=== PATIENT | female | born 1995 | race African-American/Black ===

== ENCOUNTER 2021-09-25 21:45 | Emergency (ER) | payer BC ==
[2021-09-25] MEDS ORDERED: ACETAMINOPHEN 500 MG TAB ONE (23:32)
[2021-09-25 23:39] LABS: SARS-COV-2 RT PCR POSITIVE (NEGATIVE)
[2021-09-26] MEDS ORDERED: NA CHLORIDE 0.9% 250 ML ONE (00:38)
[2021-09-26] MEDS ORDERED: CASIRIVIMAB/IMDEVIMAB 10 ML VIAL ONE (00:38)
[2021-09-26] MEDS ORDERED: NA CHLORIDE 0.9% 100 ML ONE (00:38)
[2021-09-26 02:03] LABS: Absolute Lymphocytes (CBC) 1.7 K/uL (0.7-4.9); Basophils % 0.5 % (0-1.3); Hematocrit 37.9 % (36.0-45.0); Lymphocytes % 38.9 % (15.3-44.8); MPV 8.5 fL (7.6-11.3); RBC Red Blood Cell Count 4.38 M/uL (3.86-4.86)
[2021-09-26 02:20] LABS: ALT/SGPT 36 U/L (12-78); AST/SGOT 30 U/L (15-37); Albumin 3.1 g/dL (3.4-5.0); Alkaline Phosphatase 59 U/L (45-117); BUN Blood Urea Nitrogen 11 mg/dL (7-18); Bicarbonate 27 mmol/L (21-32); Bilirubin Direct < 0.1 mg/dL (0-0.2); Bilirubin Total 0.3 mg/dL (0.2-1.0); Glucose Level 98 mg/dL (74-106); Potassium 3.2 mmol/L (3.5-5.1); Protein, Total 7.2 g/dL (6.4-8.2); Sodium Level 142 mmol/L (136-145)
[2021-09-26] MEDS ORDERED: POTASSIUM 25 MEQ EFFERV TAB ONE (02:35)
--- NOTE | 2021-09-26 04:10 | EDPHYS ---
Physician Documentation [facility] Name: Lorin Coffey Age: 26 yrs Sex: Female : 1995 Arrival Date: 09/25/2021 Time: 21:51 Bed DIS3 Private MD: ED Physician Kraig Randall HPI: 09/26 00:00 This 26 yrs old Black Female presents to ER via Ambulatory with complaints of Cough. cp 00:00 The patient or guardian reports cough, that is intermittent. Onset: The cp symptoms/episode began/occurred 2 day(s) ago. Severity of symptoms: in the emergency department the symptoms are unchanged, despite home interventions. Associated signs and symptoms: Pertinent positives: diarrhea, fever, Pertinent negatives: chest pain, ear ache, sore throat, vomiting. 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 - Social history:: Smoking status: Patient denies any tobacco usage or history of. Patient/guardian denies using alcohol. ROS: 09/26 00:05 Constitutional: Negative for fever, poor PO intake. cp 00:05 Eyes: Negative for injury, pain, redness, and discharge. cp 00:05 ENT: Negative for drainage from ear(s), ear pain, difficulty swallowing, difficulty handling secretions. 00:05 Cardiovascular: Negative for chest pain. 00:05 Respiratory: Positive for cough, Negative for shortness of breath, wheezing. 00:05 Abdomen/GI: Positive for diarrhea, Negative for abdominal pain, vomiting, constipation. 00:05 Neuro: Negative for altered mental status, headache, weakness. 00:05 All other systems are negative. Exam: 00:15 Constitutional: The patient appears in no acute distress, alert, awake, cp non-diaphoretic, non-toxic, well developed, well nourished, obese. 00:15 Head/Face: Normocephalic, atraumatic. cp 00:15 Eyes: Periorbital structures: appear normal, Conjunctiva: normal, no exudate, no injection, Sclera: no appreciated abnormality, Lids and lashes: appear normal, bilaterally. 00:15 ENT: External ear(s): are unremarkable, Nose: is normal, Mouth: Lips: moist, Oral mucosa: moist, Posterior pharynx: Airway: no evidence of obstruction, patent. 00:15 Neck: ROM/movement: is normal, is supple, without pain, no range of motions limitations, no meningismus. 00:15 Chest/axilla: Inspection: normal. 00:15 Cardiovascular: Rate: tachycardic, Rhythm: regular, Edema: is not appreciated, JVD: is not appreciated. 00:15 Respiratory: the patient does not display signs of respiratory distress, Respirations: normal, no use of accessory muscles, no retractions, labored breathing, is not present, Breath sounds: are clear throughout, no decreased breath sounds, no stridor, no wheezing. 00:15 Abdomen/GI: Exam negative for discomfort, distension, guarding, Inspection: abdomen appears normal. 00:15 Neuro: Orientation: to person, place \\T\\ time. Mentation: is normal. Vital Signs: 09/25 22:36 BP 158 / 87; Pulse 116; Resp 18; Temp 99.5(TE); Pulse Ox 96% on R/A; Weight 158.76 kg; ld1 Height 5 ft. 5 in. (165.10 cm); Pain 0/10; 23:50 BP 144 / 89; Pulse 105; Resp 18; Temp 99.4(TE); Pulse Ox 98% on R/A; ld1 09/26 02:09 BP 135 / 94; Pulse 96; Resp 18; Pulse Ox 98% on R/A; tw5 02:46 BP 139 / 94; Pulse 91; Resp 18; Pulse Ox 100% on R/A; tw5 03:13 BP 134 / 84; Pulse 93; Resp 14; Pulse Ox 100% on R/A; tw5 04:33 BP 143 / 96; Pulse 93; Resp 14; Temp 99.1; Pulse Ox 97% on R/A; tw5 09/25 22:36 Body Mass Index 58.24 (158.76 kg, 165.10 cm) ld1 MDM: 00:41 Patient medically screened. cp 01:00 Differential Diagnosis: Bronchitis Influenza Viral Syndrome Pneumonia. cp 04:08 Data reviewed: vital signs, nurses notes, lab test result(s). cp 04:08 Counseling: I had a detailed discussion with the patient and/or guardian regarding: the cp historical points, exam findings, and any diagnostic results supporting the discharge/admit diagnosis, lab results, to return to the emergency department if symptoms worsen or persist or if there are any questions or concerns that arise at home. Response to treatment: the patient's symptoms have markedly improved after treatment, VSS. Patient reports symptoms improved. Patient appears non-toxic and no signs of respiratory distress. Will discharge to home for continued monitoring. 09/25 22:40 Order name: COVID-19/FLU A+B (Document "Date of Onset" if Symptomatic); Complete Time: ld1 00:28 09/26 00:39 Order name: CBC with Diff cp 09/26 02:21 Interpretation: Normal except: BAILEY% 39.6; MN% 20.7; NEUT A 1.7. cp 09/26 00:39 Order name: BMP; Complete Time: 02:21 cp 09/26 02:21 Interpretation: Normal except: K 3.2. cp 09/26 00:39 Order name: LFT's; Complete Time: 02:21 cp 09/26 02:21 Interpretation: Normal except: ALB 3.1; GLOB 4.1; A/G 0.8. cp 09/26 00:39 Order name: IV; Complete Time: 02:16 cp Administered Medications: 09/25 23:50 Drug: Tylenol 1000 mg Route: PO; ld1 23:50 Follow up: Response: No adverse reaction ld1 09/26 00:52 CANCELLED (Physician Discretion): NS 0.9% 500 ml IV at bolus once cp 02:12 Drug: Casirivimab-Imdevimab Dose Pack 120 mg/mL-120 mg/mL (EUA) 1 application Route: tw5 IV; Rate: calculated rate; Site: right antecubital; 03:14 Follow up: Response: No adverse reaction; IV Status: Completed infusion tw5 02:40 Drug: Potassium Effervescent Tablet 50 mEq Route: PO; tw5 03:14 Follow up: Response: No adverse reaction tw5 Disposition Summary: 09/26/21 04:09 Discharge Ordered Location: Home cp Problem: new cp Symptoms: have improved cp Condition: Stable cp Diagnosis - SARS-associated coronavirus as the cause of diseases classified elsewhere cp Followup: cp - With: Private Physician - When: 2 - 3 days - Reason: Worsening of condition Discharge Instructions: - Discharge Summary Sheet cp - Strep Throat, Adult cp - COVID-19 cp - Things to Know about the COVID-19 Pandemic - [facility] [place] cp - 10 Things You Can Do to Manage Your COVID-19 Symptoms at Home - [facility] [place] cp - Form - Excuse from Work, School, or Physical Activity cp - COVID-19: Quarantine vs. Isolation - [facility] [place] cp - Prevent the Spread of COVID-19 if You Are Sick - [facility] [place] cp Forms: - Medication Reconciliation Form cp - Thank You Letter cp - Antibiotic Education cp - Work release form bb - Prescription Opioid Use cp Prescriptions: - Tessalon Perles 100 mg Oral Capsule - take 2 capsule by ORAL route every 8 hours As needed; 30 capsule; Refills: 0, cp Product Selection Permitted Addendum: 09/27/2021 07:00 Co-signature as Attending Physician, Kraig Randall MD. [facility] Signatures: Dispatcher [employer] EDMS Darryl Ludwig PA PA cp Kraig Randall MD MD [id number] Teresa Nguyen RN RN ld1 Priscilla Sawant 5 Corrections: (The following items were deleted from the chart) 09/26 00:52 00:39 NS 0.9% 500 ml IV at bolus once ordered. cp cp
--- NOTE | 2021-09-26 04:10 | ER ---
Nurse's Notes [facility] Name: Lorin Coffey Age: 26 yrs Sex: Female : 1995 Arrival Date: 09/25/2021 Time: 21:51 Bed DIS3 Private MD: Diagnosis: SARS-associated coronavirus as the cause of diseases classified elsewhere Presentation: 09/25 22:36 Chief complaint: Patient states: Productive cough, fever, diarrhea, chills \\T\\ body aches ld1 X 2 days. Coronavirus screen: Client presents with at least one sign or symptom that may indicate coronavirus-19. Standard/surgical mask placed on the client. Ebola Screen: No symptoms or risks identified at this time. Initial Sepsis Screen: Does the patient meet any 2 criteria? No. Patient's initial sepsis screen is negative. Does the patient have a suspected source of infection? No. Patient's initial sepsis screen is negative. Risk Assessment: Do you want to hurt yourself or someone else? Patient reports no desire to harm self or others. Onset of symptoms was September 25, 2021. 22:36 Method Of Arrival: Ambulatory ld1 22:36 Acuity: ERICK 4 ld1 Triage Assessment: 22:38 General: Appears in no apparent distress. comfortable, Behavior is calm, cooperative, ld1 appropriate for age. Pain: Denies pain. EENT: No signs and/or symptoms were reported regarding the EENT system. Neuro: Level of Consciousness is awake, alert, obeys commands, Oriented to person, place, time, situation, Appropriate for age. Cardiovascular: Capillary refill < 3 seconds Patient's skin is warm and dry. Respiratory: Airway is patent Respiratory effort is even, unlabored, Respiratory pattern is regular, symmetrical. Respiratory: Reports cough that is. GI: Abdomen is round non-distended, obese. GI: Reports diarrhea. : No signs and/or symptoms were reported regarding the genitourinary system. Derm: No signs and/or symptoms reported regarding the dermatologic system. Musculoskeletal: No signs and/or symptoms reported regarding the musculoskeletal system. 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 - Social history:: Smoking status: Patient denies any tobacco usage or history of. Patient/guardian denies using alcohol. Screenin/19 02:09 Abuse screen: Denies threats or abuse. Denies injuries from another. Nutritional tw5 screening: No deficits noted. Tuberculosis screening: No symptoms or risk factors identified. Fall Risk None identified. Assessment: 02:09 General: Appears in no apparent distress. Behavior is calm, cooperative, appropriate tw5 for age, Reports "Sore, fever, achy, diarrhea.". General: Appears obese. Respiratory: Airway is patent Trachea midline Respiratory effort is even, unlabored. 02:46 Reassessment: Patient appears in no apparent distress at this time. Patient and/or tw5 family updated on plan of care and expected duration. Pain level reassessed. Patient is alert, oriented x 3, equal unlabored respirations, skin warm/dry/pink. 03:13 Reassessment: Patient appears in no apparent distress at this time. No changes from tw5 previously documented assessment. Vital Signs: 09/25 22:36 BP 158 / 87; Pulse 116; Resp 18; Temp 99.5(TE); Pulse Ox 96% on R/A; Weight 158.76 kg; ld1 Height 5 ft. 5 in. (165.10 cm); Pain 0/10; 23:50 BP 144 / 89; Pulse 105; Resp 18; Temp 99.4(TE); Pulse Ox 98% on R/A; ld1 09/26 02:09 BP 135 / 94; Pulse 96; Resp 18; Pulse Ox 98% on R/A; tw5 02:46 BP 139 / 94; Pulse 91; Resp 18; Pulse Ox 100% on R/A; tw5 03:13 BP 134 / 84; Pulse 93; Resp 14; Pulse Ox 100% on R/A; tw5 04:33 BP 143 / 96; Pulse 93; Resp 14; Temp 99.1; Pulse Ox 97% on R/A; tw5 09/25 22:36 Body Mass Index 58.24 (158.76 kg, 165.10 cm) ld1 ED Course: 09/25 21:51 Patient arrived in ED. bp1 22:38 Triage completed. ld1 22:38 Arm band placed on right wrist. ld1 22:50 COVID-19/FLU A+B (Document "Date of Onset" if Symptomatic) Sent. ld1 09/26 00:01 Darryl Ludwig PA is PHCP. cp 00:01 Kraig Randall MD is Attending Physician. cp 01:58 Missed attempt(s): 20 gauge in right in left wrist. antecubital area. Bleeding ds4 controlled, band aid applied, catheter tip intact. 02:09 Priscilla Sawant is Primary Nurse. tw5 02:09 Patient has correct armband on for positive identification. Pulse ox on. NIBP on. Door tw5 closed. Noise minimized. Moved to private room. Warm blanket given. Verbal reassurance given. 02:09 signed for regen-cov. tw5 04:32 No provider procedures requiring assistance completed. IV discontinued, intact, tw5 bleeding controlled, No redness/swelling at site. Pressure dressing applied. Administered Medications: 09/25 23:50 Drug: Tylenol 1000 mg Route: PO; ld1 23:50 Follow up: Response: No adverse reaction ld1 09/26 00:52 CANCELLED (Physician Discretion): NS 0.9% 500 ml IV at bolus once cp 02:12 Drug: Casirivimab-Imdevimab Dose Pack 120 mg/mL-120 mg/mL (EUA) 1 application Route: tw5 IV; Rate: calculated rate; Site: right antecubital; 03:14 Follow up: Response: No adverse reaction; IV Status: Completed infusion tw5 02:40 Drug: Potassium Effervescent Tablet 50 mEq Route: PO; tw5 03:14 Follow up: Response: No adverse reaction tw5 Outcome: 04:09 Discharge ordered by . cp 04:32 Discharged to home ambulatory. tw5 04:32 Condition: good 04:32 Discharge instructions given to patient. 04:33 Patient left the ED. tw5 Signatures: Mandeep Linda ds4 Darryl Ludwig PA PA cp Yulisa Montenegro Lauren, RN RN ld1 Priscilla Sawant tw5
[2021-09-26 05:04] VITALS: BP 143/96; TEMP 99.1; O2SAT 97
[2021-09-26 08:51] LABS: Blood Morphology Comment NOT SEEN (NOT SEEN); Platelet Estimate ADEQ
== END 2021-09-26 04:33 | disposition home or self-care (01) ==
LOC: ER 21:45
DX: U07.1 COVID-19 (principal)
CPT/HCPCS: 96365; 85025; 80048; 36415; 80076; 0240U; 99284; J7050; M0243